=== PATIENT | female | born 1995 | race African-American/Black ===

== ENCOUNTER 2021-02-18 14:38 | Emergency (ER) | payer OTHER ==
[2021-02-18 15:07] VITALS: BMI 32.5
[2021-02-18 18:44] VITALS: BP 128/82; PULSE 70; TEMP 98.3
[2021-02-18 18:50] LABS: BASO % 0.7 % (0-2.0); EOS % 0.3 % (0-4.5); HEMATOCRIT 37.7 % (32.4-45.2); HEMOGLOBIN 12.4 GM/dL (10.7-15.3); LYMPH % 35.4 % (8-40); MCH 29.2 pg (25.7-33.7); MEAN CELL VOLUME 88.5 fl (80-96); MEAN PLT VOLUME 8.2 fl (7.5-11.1); MONO % 8.5 % (3.8-10.2); NEUT % 55.1 % (42.8-82.8); PLATELET COUNT 276 K/MM3 (134-434); RBC 4.26 M/mm3 (3.60-5.2); RDW 14.6 % (11.6-15.6); WHITE BLOOD COUNT 6.2 K/mm3 (4.0-10.0)
[2021-02-18 20:35] LABS: INR 0.95 (0.83-1.09); PROTHROMBIN TIME (PATIENT) 11.7 SEC (9.7-13.0)
[2021-02-18] MEDS ORDERED: LIDOCAINE HCL 1%, 10 MG/ML (50 mL VIAL) SQ ONE (21:39)
[2021-02-18] MEDS ORDERED: LIDOCAINE 1%/EPI 1:100000 (20 ML MULTI DOSE VIAL) ONE (21:40)
[2021-02-18 23:02] LABS: BF GLUCOSE (CSF ONLY) 70 mg/dL (40-70)
[2021-02-18 23:53] LABS: CSF APPEARANCE CLEAR; CSF COLOR COLORLESS
[2021-02-18 23:54] LABS: CSF WBC 3
== END 2021-02-18 23:28 | disposition home or self-care (01) ==
LOC: JER 14:38
PROC: 009U3ZX Drainage of Spinal Canal, Percutaneous Approach, Diagnostic (ICD-10-PCS; principal; 2021-02-18)
DX: R51.9 Headache, unspecified (principal); R83.6 Abnormal cytological findings in cerebrospinal fluid
CPT/HCPCS: 36415; 70450-TC; 82945; 84157; 85025; 85610; 87070; 87205; 99285-25

== ENCOUNTER 2021-03-28 10:38 | Emergency (ER) | payer OTHER ==
[2021-03-28 10:53] VITALS: BP 120/85; PULSE 97; TEMP 97.9; BMI 29.2
[2021-03-28 12:00] LABS: BASO % 0.2 % (0-2.0); EOS % 0.1 % (0-4.5); HEMATOCRIT 40.4 % (32.4-45.2); HEMOGLOBIN 13.5 GM/dL (10.7-15.3); LYMPH % 21.4 % (8-40); MCH 29.6 pg (25.7-33.7); MCHC 33.5 g/dl (32.0-36.0); MEAN CELL VOLUME 88.5 fl (80-96); MEAN PLT VOLUME 8.1 fl (7.5-11.1); MONO % 9.6 % (3.8-10.2); NEUT % 68.7 % (42.8-82.8); PLATELET COUNT 286 K/MM3 (134-434); RBC 4.56 M/mm3 (3.60-5.2); RDW 14.4 % (11.6-15.6); WHITE BLOOD COUNT 5.5 K/mm3 (4.0-10.0)
[2021-03-28 12:14] LABS: PROTHROMBIN TIME (PATIENT) 12.3 SEC (9.7-13.0)
[2021-03-28 12:17] LABS: ACTIVATED PTT 29.8 SECONDS (25.2-36.5)
[2021-03-28 12:25] LABS: CHLORIDE 109 mmol/L (98-107); SODIUM 139 mmol/L (136-145)
[2021-03-28 12:26] LABS: CALCIUM 9.1 mg/dL (8.5-10.1)
[2021-03-28 12:28] LABS: ALBUMIN 4.1 g/dl (3.4-5.0); ANION GAP 9 MMOL/L (8-16); BLOOD UREA NITROGEN 8.4 mg/dL (7-18); CO2 21 mmol/L (21-32); GLUCOSE,RANDOM 87 mg/dL (74-106)
[2021-03-28 12:30] LABS: CREATININE 0.6 mg/dL (0.55-1.3); SGPT/ALT 41 U/L (13-61)
[2021-03-28 12:32] LABS: BILIRUBIN,TOTAL 0.4 mg/dL (0.2-1); TOT PROT 7.6 g/dl (6.4-8.2)
[2021-03-28 12:34] LABS: ALK PHOS 101 U/L (45-117)
[2021-03-28 12:40] LABS: SGOT/AST 25 U/L (15-37)
== END 2021-03-28 13:35 | disposition home or self-care (01) ==
LOC: JER 10:38
DX: F41.9 Anxiety disorder, unspecified (principal); R07.9 Chest pain, unspecified
CPT/HCPCS: 36415; 71046-TC-FY; 80053; 82550; 82553; 84484; 84703; 85025; 85610; 85730; 93005; 93010; 99285-25

== ENCOUNTER 2021-03-31 22:38 | Emergency (ER) | payer OTHER ==
[2021-03-31 22:46] VITALS: TEMP 98.2; BMI 29.2
[2021-03-31] MEDS ORDERED: DEXAMETHASONE SOD PHOSPHATE 10 MG/1 ML VIAL ONE (23:40)
[2021-03-31] MEDS ORDERED: ACETAMINOPHEN INJECTION 100 ML IVPB ONE (23:41)
[2021-03-31] MEDS ORDERED: DEXAMETHASONE SOD PHOSPHATE 10 MG/1 ML VIAL IVPUSH ONE (23:47)
[2021-03-31] MEDS ORDERED: ACETAMINOPHEN 1000 MG/100 ML VIAL (NON FORMULARY) IVPB ONE (23:47)
[2021-03-31] MEDS ORDERED: SODIUM CHLORIDE 1,000 ML IV STA (23:48)
[2021-04-01 00:43] LABS: BASO % 0.3 % (0-2.0); EOS % 0.3 % (0-4.5); HEMATOCRIT 39.8 % (32.4-45.2); HEMOGLOBIN 13.4 GM/dL (10.7-15.3); LYMPH % 27.4 % (8-40); MCH 29.7 pg (25.7-33.7); MCHC 33.7 g/dl (32.0-36.0); MEAN CELL VOLUME 87.9 fl (80-96); MONO % 9.9 % (3.8-10.2); NEUT % 62.1 % (42.8-82.8); PLATELET COUNT 272 K/MM3 (134-434); RBC 4.53 M/mm3 (3.60-5.2); RDW 15.1 % (11.6-15.6); WHITE BLOOD COUNT 7.4 K/mm3 (4.0-10.0)
[2021-04-01 01:11] LABS: ALBUMIN 3.9 g/dl (3.4-5.0); BLOOD UREA NITROGEN 11.3 mg/dL (7-18); CALCIUM 8.8 mg/dL (8.5-10.1); MAGNESIUM 1.9 mg/dL (1.8-2.4)
[2021-04-01 01:15] LABS: CREATININE 0.6 mg/dL (0.55-1.3); PHOSPHOROUS 3.8 mg/dL (2.5-4.9)
[2021-04-01 01:16] LABS: BILIRUBIN,TOTAL 0.2 mg/dL (0.2-1); TOT PROT 7.4 g/dl (6.4-8.2)
[2021-04-01] MEDS ORDERED: POTASSIUM CHLORIDE TABS 10 MEQ TABLET.ER (FP) PO ONE (01:29)
[2021-04-01] MEDS ORDERED: POTASSIUM CHLORIDE TABS 10 MEQ TABLET.ER (FP) ONE (01:41)
[2021-04-01 03:11] VITALS: BP 136/82; PULSE 64
== END 2021-04-01 03:11 | disposition home or self-care (01) ==
LOC: JER 22:38
PROC: 3E0333Z Introduction of Anti-inflammatory into Peripheral Vein, Percutaneous Approach (ICD-10-PCS; principal; 2021-03-31)
PROC: 3E033GC Introduction of Other Therapeutic Substance into Peripheral Vein, Percutaneous Approach (ICD-10-PCS; 2021-03-31)
PROC: 3E0337Z Introduction of Electrolytic and Water Balance Substance into Peripheral Vein, Percutaneous Approach (ICD-10-PCS; 2021-03-31)
DX: R20.0 Anesthesia of skin (principal); J02.9 Acute pharyngitis, unspecified
CPT/HCPCS: 36415; 80053; 83735; 84100; 85025; 87804; 87880; 93005; 93010; 93971-TC; 99285-25; C9803; J0131; J1100; U0003; U0005

== ENCOUNTER 2021-04-06 23:50 | Observation (INO) | payer OTHER ==
[2021-04-07] MEDS ORDERED: ACETAMINOPHEN 1000 MG/100 ML VIAL (NON FORMULARY) IVPB ONE (01:22)
[2021-04-07] MEDS ORDERED: ACETAMINOPHEN INJECTION 100 ML IVPB ONE (01:55)
[2021-04-07 02:20] LABS: BASO % 0.4 % (0-2.0); EOS % 0.4 % (0-4.5); HEMATOCRIT 41.4 % (32.4-45.2); HEMOGLOBIN 13.8 GM/dL (10.7-15.3); MCH 29.2 pg (25.7-33.7); MCHC 33.3 g/dl (32.0-36.0); MEAN CELL VOLUME 87.9 fl (80-96); MEAN PLT VOLUME 7.9 fl (7.5-11.1); MONO % 8.1 % (3.8-10.2); NEUT % 69.1 % (42.8-82.8); PLATELET COUNT 283 10^3/uL (134-434); RBC 4.71 M/mm3 (3.60-5.2); RDW 14.6 % (11.6-15.6); WHITE BLOOD COUNT 7.6 K/mm3 (4.0-10.0)
[2021-04-07 02:22] LABS: PH,URINE 8.5 (5.0-8.0); URINE APPEARANCE TURBID; URINE BILIRUBIN NEGATIVE (NEGATIVE); URINE COLOR YELLOW; URINE GLUCOSE (UA) NEGATIVE (NEGATIVE); URINE KETONE 2+ (NEGATIVE); URINE LEUK ESTERASE NEGATIVE (NEGATIVE); URINE NITRITE NEGATIVE (NEGATIVE); URINE PROTEIN TRACE (NEGATIVE)
[2021-04-07 02:38] LABS: CHLORIDE 107 mmol/L (98-107); SODIUM 141 mmol/L (136-145)
[2021-04-07 02:40] LABS: CALCIUM 9.4 mg/dL (8.5-10.1); GLUCOSE,RANDOM 74 mg/dL (74-106)
[2021-04-07 02:41] LABS: ALBUMIN 4.2 g/dl (3.4-5.0); ANION GAP 9 MMOL/L (8-16); BLOOD UREA NITROGEN 5.4 mg/dL (7-18); CO2 25 mmol/L (21-32)
[2021-04-07 02:44] LABS: CREATININE 0.7 mg/dL (0.55-1.3); SGOT/AST 932 U/L (15-37); SGPT/ALT 409 U/L (13-61)
[2021-04-07 02:45] LABS: BILIRUBIN,TOTAL 1.9 mg/dL (0.2-1); TOT PROT 7.6 g/dl (6.4-8.2)
[2021-04-07] MEDS ORDERED: SODIUM CHLORIDE 0.9% 500 ML INFUS.BAG IV ONE (02:55)
[2021-04-07] MEDS ORDERED: HYDROmorphone HCL CARPU-JECT 2 MG/1 ML DISP.SYRIN IVPB ONE (02:55)
[2021-04-07 03:08] LABS: ALK PHOS 144 U/L (45-117)
[2021-04-07] MEDS ORDERED: HYDROmorphone HCl 2 MG/ML VIAL ONE ×2 (03:35→09:22)
[2021-04-07] MEDS ORDERED: ONDANSETRON 4 MG/2 ML VIAL IVPUSH ONE (03:50)
[2021-04-07] MEDS ORDERED: ONDANSETRON 4 MG/2 ML VIAL ONE (03:51)
[2021-04-07 03:55] LABS: LIPASE 99 U/L (73-393)
[2021-04-07] MEDS ORDERED: PANTOPRAZOLE SODIUM 40 MG VIAL IVPUSH ONE (05:25)
[2021-04-07] MEDS ORDERED: FOLIC ACID INJECTION - 1 MG, THIAMINE HCL 100 MG, MULTIVIT INJECTION ADULT 10 ML in SOD... IVPB ONE (05:25)
[2021-04-07] MEDS ORDERED: SUCRALFATE 1 GM TABLET (FP) ONE (06:13)
[2021-04-07] MEDS ORDERED: SUCRALFATE 1 GM TABLET (FP) PO ONE (06:14)
[2021-04-07] MEDS: SUCRALFATE 1 GM/10 ML UNIT DOSE CUPS PO ONE ×2 (06:17)
[2021-04-07 08:51] LABS: BILIRUBIN,DIRECT 1.5 mg/dL (0.0-0.2)
[2021-04-07] MEDS: HYDROmorphone HCL CARPU-JECT 2 MG/1 ML DISP.SYRIN IVPUSH ONE ×2 (09:30→11:01)
[2021-04-07] MEDS ORDERED: IBUPROFEN 400 MG TABLET (FP) PO PRN ×2 (10:04→16:23)
[2021-04-07] MEDS ORDERED: THIAMINE HCL 200 MG/2 ML VIAL IVPB ONE (10:37)
[2021-04-07] MEDS ORDERED: THIAMINE HCL 200 MG/2 ML VIAL ONE (10:45)
[2021-04-07] MEDS ORDERED: POTASSIUM CHLORIDE TABS 20 MEQ TABLET.ER (FP) PO ONE (11:15)
[2021-04-07] MEDS: SODIUM CHLORIDE 1,000 ML IV SCH (11:31)
[2021-04-07 11:36] LABS: EPI CELLS 21 /uL (0-25.1); HYALINE CASTS 1 /uL (0-3.1); URINE APPEARANCE CLEAR; URINE BACTERIA 209 /uL (0-1359); URINE BILIRUBIN NEGATIVE (NEGATIVE); URINE COLOR YELLOW; URINE GLUCOSE (UA) NEGATIVE (NEGATIVE); URINE KETONE 4+ (NEGATIVE); URINE LEUK ESTERASE NEGATIVE (NEGATIVE); URINE NITRITE NEGATIVE (NEGATIVE); URINE PROTEIN NEGATIVE (NEGATIVE); URINE RBC 3 /uL (0-23.9); URINE WBC 7 /uL (0-25.8)
[2021-04-07 14:07] VITALS: BMI 31.1
[2021-04-07 16:11] LABS: HEMATOCRIT 39.1 % (32.4-45.2); HEMOGLOBIN 12.8 GM/dL (10.7-15.3); MCH 29.1 pg (25.7-33.7); MCHC 32.8 g/dl (32.0-36.0); MEAN CELL VOLUME 88.6 fl (80-96); MEAN PLT VOLUME 8.3 fl (7.5-11.1); PLATELET COUNT 263 10^3/uL (134-434); RBC 4.41 M/mm3 (3.60-5.2); RDW 14.9 % (11.6-15.6); WHITE BLOOD COUNT 5.3 K/mm3 (4.0-10.0)
[2021-04-07 16:24] LABS: INR 0.92 (0.83-1.09); PROTHROMBIN TIME (PATIENT) 11.4 SEC (9.7-13.0)
[2021-04-07 16:26] LABS: ACTIVATED PTT 27.5 SECONDS (25.2-36.5)
[2021-04-07] MEDS: traMADol HCL 50 MG TABLET PO PRN ×2 (16:30→21:57)
[2021-04-07 16:33] LABS: CALCIUM 8.6 mg/dL (8.5-10.1)
[2021-04-07 16:34] LABS: ALBUMIN 3.5 g/dl (3.4-5.0); BLOOD UREA NITROGEN 4.7 mg/dL (7-18)
[2021-04-07 16:37] LABS: CREATININE 0.6 mg/dL (0.55-1.3); PHOSPHOROUS 2.7 mg/dL (2.5-4.9)
[2021-04-07 16:38] LABS: BILIRUBIN,TOTAL 2.5 mg/dL (0.2-1)
[2021-04-07 16:39] LABS: TOT PROT 6.4 g/dl (6.4-8.2)
[2021-04-07 17:14] LABS: URINE BARBITURATES NEGATIVE (NEGATIVE); URINE BENZODIAZEPINES NEGATIVE (NEGATIVE)
[2021-04-07 17:15] LABS: COCAINE, UR NEGATIVE (NEGATIVE); METHADONE, UR NEGATIVE (NEGATIVE); OPIATES, URI NEGATIVE (NEGATIVE); PHENCYCLIDINE,URINE NEGATIVE (NEGATIVE); URINE AMPHETAMINES NEGATIVE (NEGATIVE)
[2021-04-07] MEDS ORDERED: KETOROLAC TROMETHAMINE 30 MG/1 ML VIAL IVPUSH ONE (17:52)
[2021-04-07] MEDS: LIDOCAINE 5% TOPICAL PATCH TP SCH (18:06)
[2021-04-07] MEDS ORDERED: PT OWN MED DRAWER 7, Y5N ONE (21:21)
[2021-04-07] MEDS: LIDOCAINE PATCH REMOVAL MC SCH (21:52)
[2021-04-08] MEDS: SODIUM CHLORIDE 1,000 ML IV SCH ×2 (03:03→17:50)
[2021-04-08] MEDS: traMADol HCL 50 MG TABLET PO PRN (04:27)
[2021-04-08 07:55] LABS: HEMATOCRIT 38.1 % (32.4-45.2); HEMOGLOBIN 12.5 GM/dL (10.7-15.3); MCH 29.1 pg (25.7-33.7); MCHC 32.7 g/dl (32.0-36.0); MEAN CELL VOLUME 88.7 fl (80-96); MEAN PLT VOLUME 8.1 fl (7.5-11.1); PLATELET COUNT 246 10^3/uL (134-434); RDW 14.9 % (11.6-15.6); WHITE BLOOD COUNT 3.7 K/mm3 (4.0-10.0)
[2021-04-08 07:58] LABS: INR 0.92 (0.83-1.09); PROTHROMBIN TIME (PATIENT) 11.4 SEC (9.7-13.0)
[2021-04-08 08:01] LABS: ACTIVATED PTT 28.1 SECONDS (25.2-36.5)
[2021-04-08 08:13] LABS: ALBUMIN 3.5 g/dl (3.4-5.0); BLOOD UREA NITROGEN 3.9 mg/dL (7-18); CALCIUM 8.8 mg/dL (8.5-10.1)
[2021-04-08 08:16] LABS: PHOSPHOROUS 2.6 mg/dL (2.5-4.9)
[2021-04-08 08:17] LABS: CREATININE 0.5 mg/dL (0.55-1.3)
[2021-04-08 08:18] LABS: BILIRUBIN,TOTAL 3.7 mg/dL (0.2-1); TOT PROT 6.4 g/dl (6.4-8.2)
[2021-04-08] MEDS ORDERED: PT OWN MED DRAWER 7, Y5N ONE (09:58)
[2021-04-08] MEDS ORDERED: ENOXAPARIN NA (PORCINE) 40 MG/0.4 ML DISP.SYRIN SQ SCH (10:00)
[2021-04-08] MEDS: THIAMINE HCL 100 MG TABLET (FP) PO SCH (10:05)
[2021-04-08] MEDS: LIDOCAINE 5% TOPICAL PATCH TP SCH (10:05)
[2021-04-08] MEDS: FOLIC ACID 1 MG TABLET (FP) PO SCH (10:05)
[2021-04-08] MEDS: MULTIVITAMINS (DAILY MVI) TABLET (FP) PO SCH (10:05)
[2021-04-08 12:14] LABS: HIV INTERPRETATION NEGATIVE (NEGATIVE)
[2021-04-08] MEDS: AMPICILLIN NA/SULBACTAM NA 1.5 GM in SODIUM CHLORIDE 100 ML IVPB SCH (17:50)
[2021-04-08] MEDS: LORazepam 2 MG/ML SDV VIAL IVPUSH PRN (20:48)
[2021-04-08] MEDS: LIDOCAINE PATCH REMOVAL MC SCH (21:47)
[2021-04-09] MEDS: AMPICILLIN NA/SULBACTAM NA 1.5 GM in SODIUM CHLORIDE 100 ML IVPB SCH ×3 (01:00→18:10)
[2021-04-09] MEDS ORDERED: PT OWN MED DRAWER 7, Y5N ONE (01:00)
[2021-04-09] MEDS: LORazepam 2 MG/ML SDV VIAL IVPUSH PRN ×4 (03:00→19:30)
[2021-04-09 08:10] LABS: BASO % 0.5 % (0-2.0); EOS % 0.6 % (0-4.5); HEMATOCRIT 43.6 % (32.4-45.2); HEMOGLOBIN 14.1 GM/dL (10.7-15.3); LYMPH % 21.3 % (8-40); MCHC 32.2 g/dl (32.0-36.0); MEAN CELL VOLUME 89.9 fl (80-96); MEAN PLT VOLUME 8.5 fl (7.5-11.1); MONO % 10.3 % (3.8-10.2); NEUT % 67.3 % (42.8-82.8); PLATELET COUNT 278 10^3/uL (134-434); RBC 4.85 M/mm3 (3.60-5.2); RDW 15.3 % (11.6-15.6); WHITE BLOOD COUNT 4.4 K/mm3 (4.0-10.0)
[2021-04-09 08:10] LABS: ALPHA-1-ANTITRYPSIN 112 mg/dL (100-188)
[2021-04-09 08:29] LABS: CHLORIDE 110 mmol/L (98-107); SODIUM 140 mmol/L (136-145)
[2021-04-09 08:32] LABS: ALBUMIN 4.1 g/dl (3.4-5.0); ANION GAP 12 MMOL/L (8-16); CALCIUM 9.5 mg/dL (8.5-10.1); CO2 19 mmol/L (21-32); LIPASE 66 U/L (73-393)
[2021-04-09 08:33] LABS: GLUCOSE,RANDOM 86 mg/dL (74-106)
[2021-04-09 08:35] LABS: CREATININE 0.6 mg/dL (0.55-1.3); SGOT/AST 319 U/L (15-37); SGPT/ALT 757 U/L (13-61)
[2021-04-09 08:36] LABS: AMYLASE 30 U/L (25-115)
[2021-04-09 08:37] LABS: ALK PHOS 204 U/L (45-117); BILIRUBIN,TOTAL 1.6 mg/dL (0.2-1); TOT PROT 7.4 g/dl (6.4-8.2)
[2021-04-09] MEDS: SODIUM CHLORIDE 1,000 ML IV SCH ×2 (08:57→12:32)
[2021-04-09] MEDS: THIAMINE HCL 100 MG TABLET (FP) PO SCH (08:59)
[2021-04-09] MEDS: MULTIVITAMINS (DAILY MVI) TABLET (FP) PO SCH (08:59)
[2021-04-09] MEDS: FOLIC ACID 1 MG TABLET (FP) PO SCH (08:59)
[2021-04-09] MEDS: LIDOCAINE 5% TOPICAL PATCH TP SCH (09:00)
[2021-04-09 09:44] LABS: BLOOD UREA NITROGEN 2.7 mg/dL (7-18)
[2021-04-09] MEDS: traMADol HCL 50 MG TABLET PO PRN (10:41)
[2021-04-09] MEDS ORDERED: POTASSIUM CHLORIDE TABS 20 MEQ TABLET.ER (FP) PO ONE (11:47)
[2021-04-09 14:11] LABS: HEP B CORE AB, TOT Negative (Negative)
[2021-04-09] MEDS ORDERED: INSULIN (NOVOLOG) ASPART 100 UNITS/ML 10ML VIAL ONE (18:26)
[2021-04-09] MEDS ORDERED: INSULIN (LEVEMIR) 100 UNITS/ML UNITS SQ ONE (18:26)
[2021-04-09] MEDS: LIDOCAINE PATCH REMOVAL MC SCH (21:01)
[2021-04-10] MEDS: LORazepam 2 MG/ML SDV VIAL IVPUSH PRN ×4 (00:50→21:08)
[2021-04-10] MEDS: AMPICILLIN NA/SULBACTAM NA 1.5 GM in SODIUM CHLORIDE 100 ML IVPB SCH ×3 (00:59→17:22)
[2021-04-10] MEDS ORDERED: MELATONIN 5 MG TABLETS PO ONE ×2 (01:18→21:08)
[2021-04-10] MEDS: traMADol HCL 50 MG TABLET PO PRN (08:31)
[2021-04-10] MEDS: THIAMINE HCL 100 MG TABLET (FP) PO SCH (09:41)
[2021-04-10] MEDS: MULTIVITAMINS (DAILY MVI) TABLET (FP) PO SCH (09:41)
[2021-04-10] MEDS: FOLIC ACID 1 MG TABLET (FP) PO SCH (09:41)
[2021-04-10] MEDS: LIDOCAINE 5% TOPICAL PATCH TP SCH (09:49)
[2021-04-10] MEDS: SODIUM CHLORIDE 1,000 ML IV SCH (11:31)
[2021-04-10 12:19] LABS: BASO % 0.6 % (0-2.0); EOS % 0.7 % (0-4.5); HEMATOCRIT 41.1 % (32.4-45.2); LYMPH % 24.7 % (8-40); MCH 28.4 pg (25.7-33.7); MCHC 31.7 g/dl (32.0-36.0); MEAN CELL VOLUME 89.6 fl (80-96); MEAN PLT VOLUME 8.3 fl (7.5-11.1); MONO % 12.2 % (3.8-10.2); NEUT % 61.8 % (42.8-82.8); PLATELET COUNT 271 10^3/uL (134-434); RBC 4.59 M/mm3 (3.60-5.2); RDW 15.3 % (11.6-15.6); WHITE BLOOD COUNT 4.9 K/mm3 (4.0-10.0)
[2021-04-10 12:39] LABS: ALBUMIN 3.7 g/dl (3.4-5.0); BLOOD UREA NITROGEN 3.8 mg/dL (7-18); CALCIUM 9.6 mg/dL (8.5-10.1)
[2021-04-10 12:43] LABS: CREATININE 0.6 mg/dL (0.55-1.3)
[2021-04-10 12:44] LABS: BILIRUBIN,TOTAL 1.6 mg/dL (0.2-1); TOT PROT 6.9 g/dl (6.4-8.2)
[2021-04-10] MEDS ORDERED: SODIUM CHLORIDE 100 ML IVPB ONE (17:10)
[2021-04-10] MEDS ORDERED: AMPICILLIN NA/SULBACTAM NA 1.5 GM VIAL ONE (17:10)
[2021-04-10] MEDS: LIDOCAINE PATCH REMOVAL MC SCH (22:00)
[2021-04-11] MEDS ORDERED: AMPICILLIN NA/SULBACTAM NA 1.5 GM VIAL ONE ×3 (01:07→17:46)
[2021-04-11] MEDS ORDERED: SODIUM CHLORIDE 100 ML IVPB ONE ×3 (01:07→17:46)
[2021-04-11] MEDS: AMPICILLIN NA/SULBACTAM NA 1.5 GM in SODIUM CHLORIDE 100 ML IVPB SCH ×3 (02:07→18:03)
[2021-04-11] MEDS: LORazepam 2 MG/ML SDV VIAL IVPUSH PRN ×2 (05:24→10:23)
[2021-04-11 07:42] LABS: CALCIUM 9.1 mg/dL (8.5-10.1)
[2021-04-11 07:43] LABS: ALBUMIN 3.6 g/dl (3.4-5.0); BLOOD UREA NITROGEN 4.5 mg/dL (7-18)
[2021-04-11 07:46] LABS: CREATININE 0.6 mg/dL (0.55-1.3)
[2021-04-11 07:47] LABS: BILIRUBIN,TOTAL 1.5 mg/dL (0.2-1); TOT PROT 6.7 g/dl (6.4-8.2)
[2021-04-11] MEDS: THIAMINE HCL 100 MG TABLET (FP) PO SCH (10:06)
[2021-04-11] MEDS: FOLIC ACID 1 MG TABLET (FP) PO SCH (10:06)
[2021-04-11] MEDS: LIDOCAINE 5% TOPICAL PATCH TP SCH (10:06)
[2021-04-11] MEDS: MULTIVITAMINS (DAILY MVI) TABLET (FP) PO SCH (10:06)
[2021-04-11] MEDS: SODIUM CHLORIDE 1,000 ML IV SCH ×2 (10:21→18:03)
[2021-04-11] MEDS: LIDOCAINE PATCH REMOVAL MC SCH (22:24)
[2021-04-12] MEDS ORDERED: AMPICILLIN NA/SULBACTAM NA 1.5 GM VIAL ONE ×2 (01:10→09:09)
[2021-04-12] MEDS ORDERED: SODIUM CHLORIDE 100 ML IVPB ONE ×2 (01:11→09:09)
[2021-04-12] MEDS: AMPICILLIN NA/SULBACTAM NA 1.5 GM in SODIUM CHLORIDE 100 ML IVPB SCH ×2 (01:12→09:15)
[2021-04-12] MEDS: SODIUM CHLORIDE 1,000 ML IV SCH (07:34)
[2021-04-12 08:10] LABS: BLOOD UREA NITROGEN 6.8 mg/dL (7-18)
[2021-04-12 08:12] LABS: BILIRUBIN,TOTAL 1.2 mg/dL (0.2-1); CALCIUM 8.8 mg/dL (8.5-10.1)
[2021-04-12 08:13] LABS: ALBUMIN 3.6 g/dl (3.4-5.0); CREATININE 0.6 mg/dL (0.55-1.3)
[2021-04-12 08:14] LABS: TOT PROT 6.7 g/dl (6.4-8.2)
[2021-04-12] MEDS ORDERED: PT OWN MED DRAWER 7, Y5N ONE ×2 (09:08→13:00)
[2021-04-12] MEDS: FOLIC ACID 1 MG TABLET (FP) PO SCH ×2 (09:14→12:45)
[2021-04-12] MEDS: MULTIVITAMINS (DAILY MVI) TABLET (FP) PO SCH ×2 (09:23→12:45)
[2021-04-12] MEDS: THIAMINE HCL 100 MG TABLET (FP) PO SCH ×2 (09:23→12:45)
[2021-04-12] MEDS: LIDOCAINE 5% TOPICAL PATCH TP SCH (09:26)
[2021-04-12 16:02] LABS: VENOUS BASE EXCESS -7.3 mmol/L (-2-2); VENOUS PCO2 37.6 mmHg (38-52); VENOUS PH 7.306 (7.310-7.410)
[2021-04-12 16:52] LABS: PH,URINE 8.5 (5.0-8.0); URINE APPEARANCE CLEAR; URINE BILIRUBIN NEGATIVE (NEGATIVE); URINE COLOR YELLOW; URINE GLUCOSE (UA) NEGATIVE (NEGATIVE); URINE KETONE TRACE (NEGATIVE); URINE LEUK ESTERASE NEGATIVE (NEGATIVE); URINE NITRITE NEGATIVE (NEGATIVE); URINE PROTEIN NEGATIVE (NEGATIVE); URINE UROBILINOGEN 0.2 mg/dL (0.2-1.0)
[2021-04-12] MEDS: LIDOCAINE PATCH REMOVAL MC SCH (21:12)
[2021-04-12] MEDS ORDERED: SODIUM BICARBONATE 650 MG TABLET PO ONE (21:51)
[2021-04-12] MEDS ORDERED: MELATONIN 5 MG TABLETS PO ONE (22:45)
[2021-04-13 08:14] LABS: ALBUMIN 3.8 g/dl (3.4-5.0); BLOOD UREA NITROGEN 6.2 mg/dL (7-18)
[2021-04-13 08:18] LABS: CREATININE 0.6 mg/dL (0.55-1.3)
[2021-04-13 08:19] LABS: BILIRUBIN,TOTAL 0.8 mg/dL (0.2-1)
[2021-04-13] MEDS: MULTIVITAMINS (DAILY MVI) TABLET (FP) PO SCH (09:32)
[2021-04-13] MEDS: THIAMINE HCL 100 MG TABLET (FP) PO SCH (09:32)
[2021-04-13] MEDS: FOLIC ACID 1 MG TABLET (FP) PO SCH (09:32)
[2021-04-13] MEDS: LIDOCAINE 5% TOPICAL PATCH TP SCH (09:33)
[2021-04-13 10:41] VITALS: BP 146/74; PULSE 68; TEMP 97.5
== END 2021-04-13 11:32 | disposition home or self-care (01) ==
LOC: JER 23:50 → INTOOBSV 04-07 04:52 → UNDOADMOB 04-07 04:52 → JERBED 04-07 04:52 → J7W 04-07 12:17 → JERBED 04-07 12:17 → J7W 04-07 16:16
PROVIDERS: ATTEND Internal Medicine
PROC: 3E033GC Introduction of Other Therapeutic Substance into Peripheral Vein, Percutaneous Approach (ICD-10-PCS; principal; 2021-04-07)
PROC: 3E03329 Introduction of Other Anti-infective into Peripheral Vein, Percutaneous Approach (ICD-10-PCS; 2021-04-07)
PROC: 3E03329 Introduction of Other Anti-infective into Peripheral Vein, Percutaneous Approach (ICD-10-PCS; 2021-04-07)
DX: R74.01 Elevation of levels of liver transaminase levels (principal); F10.29 Alcohol dependence with unspecified alcohol-induced disorder; K70.10 Alcoholic hepatitis without ascites; K80.42 Calculus of bile duct with acute cholecystitis without obstruction; F39 Unspecified mood [affective] disorder; M54.89 Other dorsalgia; H40.9 Unspecified glaucoma; G93.2 Benign intracranial hypertension; R94.5 Abnormal results of liver function studies; E87.2 Acidosis
CPT/HCPCS: 36415; 70450-TC; 71260-TC; 72100-TC-FY; 73090-TC-RT-FY; 74177-TC; 74181-TC; 76705-TC; 80053; 80074; 80307; 81003; 82103; 82150; 82248; 82436; 82550; 82553; 82728; 82803; 82977; 83516; 83540; 83550; 83690; 83735; 84100; 84133; 84300; 84443; 84466; 84484; 84703; 85025; 85027; 85610; 85730; 86038; 86140; 86704; 86705; 86706; 86707; 86708; 86709; 87040; 87086; 87340; 87389; 93005; 93010; 96365; 96366; 96375; 96376; 97116-GP; 97161-GP; 99291; C9803; G0378; J0131; U0003; U0005

== ENCOUNTER 2021-04-19 17:51 | Emergency (ER) | payer OTHER ==
[2021-04-19 18:00] VITALS: BP 129/80; PULSE 73; TEMP 98.8; BMI 29.2
[2021-04-19 18:56] LABS: BASO % 0.3 % (0-2.0); EOS % 0.7 % (0-4.5); HEMOGLOBIN 12.4 GM/dL (10.7-15.3); LYMPH % 30.4 % (8-40); MCH 28.7 pg (25.7-33.7); MCHC 32.7 g/dl (32.0-36.0); MEAN CELL VOLUME 87.9 fl (80-96); MEAN PLT VOLUME 8.2 fl (7.5-11.1); MONO % 15.2 % (3.8-10.2); NEUT % 53.4 % (42.8-82.8); PLATELET COUNT 297 10^3/uL (134-434); RBC 4.32 M/mm3 (3.60-5.2); RDW 14.9 % (11.6-15.6); WHITE BLOOD COUNT 5.3 K/mm3 (4.0-10.0)
[2021-04-19 19:03] LABS: INR 1.08 (0.83-1.09); PROTHROMBIN TIME (PATIENT) 13.3 SEC (9.7-13.0)
[2021-04-19 19:06] LABS: ACTIVATED PTT 30.2 SECONDS (25.2-36.5)
[2021-04-19 19:13] LABS: CHLORIDE 105 mmol/L (98-107); SODIUM 141 mmol/L (136-145)
[2021-04-19 19:17] LABS: ALBUMIN 3.8 g/dl (3.4-5.0); ANION GAP 8 MMOL/L (8-16); CO2 28 mmol/L (21-32); GLUCOSE,RANDOM 90 mg/dL (74-106)
[2021-04-19 19:20] LABS: SGPT/ALT 119 U/L (13-61)
[2021-04-19 19:21] LABS: BILIRUBIN,TOTAL 0.8 mg/dL (0.2-1); TOT PROT 6.8 g/dl (6.4-8.2)
[2021-04-19 19:32] LABS: SGOT/AST 44 U/L (15-37)
[2021-04-19] MEDS ORDERED: POTASSIUM CHLORIDE TABS 20 MEQ TABLET.ER (FP) PO ONE (19:42)
[2021-04-19 19:55] LABS: ALK PHOS 128 U/L (45-117); BLOOD UREA NITROGEN 2.8 mg/dL (7-18); CREATININE 0.5 mg/dL (0.55-1.3)
== END 2021-04-19 20:05 | disposition home or self-care (01) ==
LOC: JERFT 17:51
DX: M71.22 Synovial cyst of popliteal space [Baker], left knee (principal)
CPT/HCPCS: 36415; 80053; 85025; 85610; 85730; 99284-25

== ENCOUNTER 2021-04-20 23:00 | Emergency (ER) | payer OTHER ==
[2021-04-20 23:20] VITALS: BP 123/73; PULSE 70; TEMP 98; BMI 29.2
== END 2021-04-21 02:41 | disposition home or self-care (01) ==
LOC: JER 23:00
DX: R04.0 Epistaxis (principal); J40 Bronchitis, not specified as acute or chronic
CPT/HCPCS: 71046-TC-FY; 87804; 99284-25; C9803; U0003; U0005

== ENCOUNTER 2021-04-23 13:19 | Emergency (ER) | payer OTHER ==
[2021-04-23 13:27] VITALS: BP 135/74; PULSE 68; TEMP 98.6; BMI 29.2
== END 2021-04-23 14:33 | disposition home or self-care (01) ==
LOC: JERFT 13:19
DX: R05 Cough (principal); R51.9 Headache, unspecified
CPT/HCPCS: 99281-25

== ENCOUNTER 2021-04-25 19:00 | Emergency (ER) | payer OTHER ==
[2021-04-25 19:36] VITALS: TEMP 97.7; BMI 23.5
[2021-04-25] MEDS ORDERED: ACETAMINOPHEN 325 MG TABLET (FP) PO ONE (20:12)
[2021-04-25] MEDS ORDERED: SODIUM CHLORIDE 0.9% 500 ML INFUS.BAG IV ONE (20:13)
[2021-04-25] MEDS ORDERED: ACETAMINOPHEN 325 MG TABLET (FP) ONE (20:38)
[2021-04-25 20:45] LABS: HEMATOCRIT 37.5 % (32.4-45.2); HEMOGLOBIN 12.3 GM/dL (10.7-15.3); MCH 28.6 pg (25.7-33.7); MCHC 32.7 g/dl (32.0-36.0); MEAN CELL VOLUME 87.5 fl (80-96); MEAN PLT VOLUME 7.9 fl (7.5-11.1); PLATELET COUNT 333 10^3/uL (134-434); RBC 4.28 M/mm3 (3.60-5.2); RDW 14.4 % (11.6-15.6); WHITE BLOOD COUNT 6.9 K/mm3 (4.0-10.0)
[2021-04-25 21:00] LABS: CHLORIDE 108 mmol/L (98-107); SODIUM 140 mmol/L (136-145)
[2021-04-25 21:02] LABS: ALBUMIN 3.4 g/dl (3.4-5.0); ANION GAP 9 MMOL/L (8-16); BLOOD UREA NITROGEN 5.3 mg/dL (7-18); CO2 24 mmol/L (21-32); LIPASE 57 U/L (73-393); MAGNESIUM 1.9 mg/dL (1.8-2.4)
[2021-04-25 21:03] LABS: GLUCOSE,RANDOM 69 mg/dL (74-106)
[2021-04-25 21:05] LABS: CREATININE 0.4 mg/dL (0.55-1.3); SGOT/AST 25 U/L (15-37); SGPT/ALT 57 U/L (13-61)
[2021-04-25 21:07] LABS: BILIRUBIN,TOTAL 0.5 mg/dL (0.2-1); TOT PROT 6.6 g/dl (6.4-8.2)
[2021-04-25 21:08] LABS: ALK PHOS 106 U/L (45-117)
[2021-04-25] MEDS ORDERED: POTASSIUM CHLORIDE ORAL LIQUID 20 MEQ/15 ML PO ONE (22:00)
[2021-04-25] MEDS ORDERED: POTASSIUM CHLORIDE ORAL LIQUID 20 MEQ/15 ML ONE (22:28)
[2021-04-25 23:19] VITALS: BP 128/82; PULSE 56
== END 2021-04-26 00:47 | disposition home or self-care (01) ==
LOC: JER 19:00
DX: K80.50 Calculus of bile duct without cholangitis or cholecystitis without obstruction (principal); R94.31 Abnormal electrocardiogram [ECG] [EKG]
CPT/HCPCS: 36415; 76705-TC; 80053; 83605; 83690; 83735; 84484; 84703; 85027; 93005; 93010; 99285-25

== ENCOUNTER 2021-11-10 12:16 | Emergency (ER) | payer OTHER ==
[2021-11-10 12:48] VITALS: BP 134/87; PULSE 91; TEMP 98.7; BMI 29.2
[2021-11-10] MEDS ORDERED: FAMOTIDINE 20 MG/50 ML IVPB 20 MG/50 ML MG IVPB ONE ×2 (13:25→13:44)
[2021-11-10] MEDS ORDERED: MAG HYDROX/AL HYDROX/SIMETH 30 ML UNIT-DOSE CUP PO ONE (13:25)
[2021-11-10] MEDS ORDERED: MAG HYDROX/AL HYDROX/SIMETH 30 ML UNIT-DOSE CUP ONE (13:44)
[2021-11-10 13:57] LABS: URINE APPEARANCE CLOUDY; URINE BILIRUBIN NEGATIVE (NEGATIVE); URINE COLOR YELLOW; URINE GLUCOSE (UA) NEGATIVE (NEGATIVE); URINE KETONE NEGATIVE (NEGATIVE); URINE LEUK ESTERASE NEGATIVE (NEGATIVE); URINE NITRITE NEGATIVE (NEGATIVE); URINE PROTEIN TRACE (NEGATIVE); URINE UROBILINOGEN 0.2 mg/dL (0.2-1.0)
[2021-11-10 13:59] LABS: BASO % 0.5 % (0-2.0); EOS % 0.6 % (0-4.5); HCG,QUALITATIVE URINE Negative; HEMATOCRIT 40.2 % (32.4-45.2); HEMOGLOBIN 12.8 GM/dL (10.7-15.3); LYMPH % 34.5 % (8-40); MCH 28.3 pg (25.7-33.7); MCHC 31.8 g/dl (32.0-36.0); MEAN PLT VOLUME 7.9 fl (7.5-11.1); MONO % 11.1 % (3.8-10.2); NEUT % 53.3 % (42.8-82.8); PLATELET COUNT 279 10^3/uL (134-434); RBC 4.51 M/mm3 (3.60-5.2); RDW 14.6 % (11.6-15.6); WHITE BLOOD COUNT 5.3 K/mm3 (4.0-10.0)
[2021-11-10 14:45] LABS: CALCIUM 9.7 mg/dL (8.5-10.1)
[2021-11-10] MEDS ORDERED: ACETAMINOPHEN 1000 MG/100 ML BAG IVPB ONE (14:47)
[2021-11-10 14:50] LABS: BILIRUBIN,TOTAL 0.3 mg/dL (0.2-1); CREATININE 0.6 mg/dL (0.55-1.3); TOT PROT 7.4 g/dl (6.4-8.2)
[2021-11-10] MEDS ORDERED: ACETAMINOPHEN INJECTION 100 ML IVPB ONE (14:54)
[2021-11-10] MEDS ORDERED: morphine CARPU-JECT 2 MG/1 ML DISP.SYRIN IVPUSH ONE (16:09)
[2021-11-10] MEDS ORDERED: ONDANSETRON 4 MG/2 ML VIAL IVPUSH ONE (16:10)
[2021-11-10] MEDS ORDERED: ONDANSETRON 4 MG/2 ML VIAL ONE (16:13)
== END 2021-11-10 17:30 ==
LOC: JER 12:16
PROC: 3E0333Z Introduction of Anti-inflammatory into Peripheral Vein, Percutaneous Approach (ICD-10-PCS; principal; 2021-11-10)
PROC: 3E033GC Introduction of Other Therapeutic Substance into Peripheral Vein, Percutaneous Approach (ICD-10-PCS; 2021-11-10)
PROC: 3E033NZ Introduction of Analgesics, Hypnotics, Sedatives into Peripheral Vein, Percutaneous Approach (ICD-10-PCS; 2021-11-10)
PROC: 3E033GC Introduction of Other Therapeutic Substance into Peripheral Vein, Percutaneous Approach (ICD-10-PCS; 2021-11-10)
DX: N83.292 Other ovarian cyst, left side (principal)
CPT/HCPCS: 36415; 74177-TC; 80053; 81003; 83690; 84703; 85025; 85379; 99285-25; J0131; Q9967

== ENCOUNTER 2022-01-02 11:19 | Emergency (ER) | payer OTHER ==
[2022-01-02 11:48] VITALS: BP 135/86; PULSE 91; TEMP 98.2; BMI 29.2
[2022-01-02] MEDS ORDERED: KETOROLAC TROMETHAMINE 30 MG/1 ML VIAL IM ONE (12:38)
[2022-01-02] MEDS ORDERED: KETOROLAC TROMETHAMINE 30 MG/1 ML VIAL ONE (12:40)
== END 2022-01-02 13:41 | disposition home or self-care (01) ==
LOC: JER 11:19
PROC: 3E023GC Introduction of Other Therapeutic Substance into Muscle, Percutaneous Approach (ICD-10-PCS; principal; 2022-01-02)
DX: M94.0 Chondrocostal junction syndrome [Tietze] (principal)
CPT/HCPCS: 71046-TC-FY; 93005; 93010; 99284-25

== ENCOUNTER 2022-09-27 11:35 | Emergency (ER) | payer SELFPAY ==
[2022-09-27 11:45] VITALS: BP 118/75; PULSE 120; RESP 19; TEMP 98.9; BMI 30.9
[2022-09-27] MEDS ORDERED: KETOROLAC TROMETHAMINE 30 MG/1 ML VIAL IVPUSH ONE (13:22)
[2022-09-27] MEDS ORDERED: KETOROLAC TROMETHAMINE 30 MG/1 ML VIAL ONE (13:24)
[2022-09-27 14:26] LABS: BASO % 0.2 % (0-2.0); EOS % 0.2 % (0-4.5); HEMATOCRIT 38.2 % (32.4-45.2); HEMOGLOBIN 12.4 GM/dL (10.7-15.3); LYMPH % 9.9 % (8-40); MCH 28.4 pg (25.7-33.7); MCHC 32.5 g/dl (32.0-36.0); MEAN CELL VOLUME 87.4 fl (80-96); MEAN PLT VOLUME 8.1 fl (7.5-11.1); MONO % 7.7 % (3.8-10.2); PLATELET COUNT 285 10^3/uL (134-434); RBC 4.37 M/mm3 (3.60-5.2); RDW 14.7 % (11.6-15.6); WHITE BLOOD COUNT 18.2 K/mm3 (4.0-10.0)
[2022-09-27 14:53] LABS: CALCIUM 9.5 mg/dL (8.5-10.1)
[2022-09-27 14:54] LABS: ALBUMIN 3.8 g/dl (3.4-5.0); BLOOD UREA NITROGEN 6.9 mg/dL (7-18)
[2022-09-27 14:57] LABS: CREATININE 0.7 mg/dL (0.55-1.3)
[2022-09-27 14:59] LABS: BILIRUBIN,TOTAL 0.3 mg/dL (0.2-1); TOT PROT 7.4 g/dl (6.4-8.2)
[2022-09-27] MEDS ORDERED: GABAPENTIN 100 MG CAPSULE PO ONE (16:02)
[2022-09-27] MEDS ORDERED: SODIUM CHLORIDE 0.9% 500 ML INFUS.BAG IV ONE (16:05)
[2022-09-27] MEDS ORDERED: GABAPENTIN 100 MG CAPSULE ONE (16:14)
[2022-09-27 17:50] LABS: EPI CELLS >36 /uL (0-25.1); HYALINE CASTS 7 /uL (0-3.1); PH,URINE 5.5 (5.0-8.0); URINE APPEARANCE CLOUDY; URINE BACTERIA >9,000 /uL (0-1359); URINE BILIRUBIN NEGATIVE (NEGATIVE); URINE COLOR YELLOW; URINE GLUCOSE (UA) NEGATIVE (NEGATIVE); URINE KETONE 1+ (NEGATIVE); URINE LEUK ESTERASE NEGATIVE (NEGATIVE); URINE NITRITE POSITIVE (NEGATIVE); URINE PROTEIN 2+ (NEGATIVE); URINE RBC 13 /uL (0-23.9); URINE UROBILINOGEN 0.2 mg/dL (0.2-1.0)
[2022-09-27] MEDS ORDERED: morphine CARPU-JECT 2 MG/1 ML DISP.SYRIN IVPUSH ONE (18:35)
== END 2022-09-27 20:41 | disposition home or self-care (01) ==
LOC: JERFT 11:35
PROC: 3E033GC Introduction of Other Therapeutic Substance into Peripheral Vein, Percutaneous Approach (ICD-10-PCS; principal; 2022-09-27)
DX: N39.0 Urinary tract infection, site not specified (principal); M54.31 Sciatica, right side
CPT/HCPCS: 0241U-QW; 36415; 71046-TC-FY; 80053; 81003; 84703; 85025; 85379; 87086; 87186; 93005; 93010; 93971-TC; 99285-25

== ENCOUNTER 2022-12-01 19:13 | Emergency (ER) | payer OTHER ==
[2022-12-01 19:31] VITALS: BMI 31.2
[2022-12-01] MEDS ORDERED: SODIUM CHLORIDE 0.9% 500 ML INFUS.BAG IV ONE (20:18)
[2022-12-01] MEDS ORDERED: diphenhydrAMINE HCL 25 MG CAPSULE (FP) PO ONE (20:18)
[2022-12-01] MEDS ORDERED: METOCLOPRAMIDE HCL INJECTION 10 MG/2 ML VIAL IVPUSH ONE (20:19)
[2022-12-01] MEDS ORDERED: METOCLOPRAMIDE HCL INJECTION 10 MG/2 ML VIAL ONE (20:23)
[2022-12-01 21:31] LABS: BASO % 0.2 % (0-2.0); HEMATOCRIT 35.9 % (32.4-45.2); HEMOGLOBIN 11.9 GM/dL (10.7-15.3); LYMPH % 31.2 % (8-40); MCH 28.8 pg (25.7-33.7); MCHC 33.3 g/dl (32.0-36.0); MEAN CELL VOLUME 86.6 fl (80-96); MEAN PLT VOLUME 7.8 fl (7.5-11.1); MONO % 7.8 % (3.8-10.2); NEUT % 59.8 % (42.8-82.8); PLATELET COUNT 309 10^3/uL (134-434); RBC 4.15 M/mm3 (3.60-5.2); RDW 14.7 % (11.6-15.6); WHITE BLOOD COUNT 10.6 K/mm3 (4.0-10.0)
[2022-12-01 21:44] LABS: CALCIUM 8.9 mg/dL (8.5-10.1)
[2022-12-01 21:45] LABS: ALBUMIN 3.5 g/dl (3.4-5.0); BLOOD UREA NITROGEN 10.8 mg/dL (7-18)
[2022-12-01 21:48] LABS: CREATININE 0.7 mg/dL (0.55-1.3)
[2022-12-01 21:49] LABS: BILIRUBIN,TOTAL 0.2 mg/dL (0.2-1)
[2022-12-01 21:50] LABS: TOT PROT 6.6 g/dl (6.4-8.2)
[2022-12-01] MEDS ORDERED: MAGNESIUM SULF 50% (8.12 MEQ/2 ML-1 GM VIAL) IVPB ONE (23:36)
[2022-12-01] MEDS ORDERED: morphine CARPU-JECT 2 MG/1 ML DISP.SYRIN IVPUSH ONE (23:37)
[2022-12-01] MEDS ORDERED: MAGNESIUM SULFATE IN WATER 2 GM/50 ML IVPB IVPB ONE (23:39)
[2022-12-02] MEDS ORDERED: morphine CARPU-JECT 4 MG/1 ML DISP.SYRIN IVPUSH ONE ×2 (01:06→01:40)
[2022-12-02] MEDS ORDERED: ACETAMINOPHEN 1000 MG/100 ML BAG IVPB ONE (01:07)
[2022-12-02 01:31] VITALS: BP 131/81; PULSE 77; RESP 19; TEMP 97.7
== END 2022-12-02 03:15 | disposition home or self-care (01) ==
LOC: JER 19:13
PROC: 009U3ZX Drainage of Spinal Canal, Percutaneous Approach, Diagnostic (ICD-10-PCS; principal; 2022-12-01)
PROC: 3E033GC Introduction of Other Therapeutic Substance into Peripheral Vein, Percutaneous Approach (ICD-10-PCS; 2022-12-01)
DX: G93.2 Benign intracranial hypertension (principal)
CPT/HCPCS: 36415; 70450-TC; 80053; 84702; 84703; 85025; 86850; 86900; 86901; 99285-25

== ENCOUNTER 2023-03-28 10:29 | Emergency (ER) | payer OTHER ==
[2023-03-28 10:34] VITALS: BP 127/84; PULSE 77; RESP 18; TEMP 98.2; BMI 30.2
[2023-03-28] MEDS ORDERED: KETOROLAC TROMETHAMINE 30 MG/1 ML VIAL IM ONE (12:42)
[2023-03-28] MEDS ORDERED: KETOROLAC TROMETHAMINE 30 MG/1 ML VIAL ONE (12:46)
== END 2023-03-28 13:26 | disposition home or self-care (01) ==
LOC: JERFT 10:29
PROC: 3E0233Z Introduction of Anti-inflammatory into Muscle, Percutaneous Approach (ICD-10-PCS; principal; 2023-03-28)
DX: R07.89 Other chest pain (principal); R05.9 Cough, unspecified
CPT/HCPCS: 71046-TC-FY; 84703; 93005; 93010; 99284-25

== ENCOUNTER 2023-09-18 10:14 | Emergency (ER) | payer OTHER ==
[2023-09-18 11:20] VITALS: BP 115/75; PULSE 72; RESP 20; TEMP 97.9; BMI 29.2
[2023-09-18] MEDS ORDERED: SODIUM CHLORIDE 0.9% 500 ML INFUS.BAG IV ONE (12:20)
[2023-09-18] MEDS ORDERED: METOCLOPRAMIDE HCL INJECTION 10 MG/2 ML VIAL IVPUSH ONE (12:21)
[2023-09-18] MEDS ORDERED: ACETAMINOPHEN 500 MG TABLET (FP) PO ONE (12:21)
[2023-09-18] MEDS ORDERED: METOCLOPRAMIDE HCL INJECTION 10 MG/2 ML VIAL ONE (12:24)
[2023-09-18] MEDS ORDERED: ACETAMINOPHEN 500 MG TABLET (FP) ONE (12:27)
[2023-09-18 12:58] LABS: BASO % 0.3 % (0-2.0); EOS % 1.2 % (0-4.5); HEMOGLOBIN 13.5 GM/dL (10.7-15.3); LYMPH % 31.8 % (8-40); MCH 28.5 pg (25.7-33.7); MCHC 32.8 g/dl (32.0-36.0); MEAN PLT VOLUME 7.4 fl (7.5-11.1); MONO % 7.8 % (3.8-10.2); NEUT % 58.9 % (42.8-82.8); PLATELET COUNT 303 10^3/uL (134-434); RBC 4.72 M/mm3 (3.60-5.2); RDW 15.3 % (11.6-15.6); WHITE BLOOD COUNT 5.6 K/mm3 (4.0-10.0)
[2023-09-18 13:13] LABS: POTASSIUM 4.1 mmol/L (3.5-5.1)
[2023-09-18 13:17] LABS: CALCIUM 9.3 mg/dL (8.5-10.1)
[2023-09-18 13:21] LABS: CREATININE 0.8 mg/dL (0.55-1.3)
[2023-09-18 13:23] LABS: BILIRUBIN,TOTAL 0.3 mg/dL (0.2-1); TOT PROT 7.4 g/dl (6.4-8.2)
== END 2023-09-18 14:09 | disposition home or self-care (01) ==
LOC: JER 10:14
PROC: 3E033NZ Introduction of Analgesics, Hypnotics, Sedatives into Peripheral Vein, Percutaneous Approach (ICD-10-PCS; principal; 2023-09-18)
DX: R51.9 Headache, unspecified (principal)
CPT/HCPCS: 36415; 80053; 84703; 85025; 96374; 99284-25

== ENCOUNTER 2023-09-21 15:07 | Emergency (ER) | payer OTHER ==
[2023-09-21 15:27] VITALS: BP 145/100; PULSE 66; RESP 16; TEMP 98.4; BMI 29.2
[2023-09-21] MEDS ORDERED: KETOROLAC TROMETHAMINE 30 MG/1 ML VIAL IVPUSH ONE (16:21)
[2023-09-21] MEDS ORDERED: SODIUM CHLORIDE 1,000 ML IV STA (16:22)
[2023-09-21] MEDS ORDERED: ONDANSETRON 4 MG/2 ML VIAL IVPUSH ONE (16:22)
[2023-09-21] MEDS ORDERED: ACETAMINOPHEN 1000 MG/100 ML BAG IVPB ONE (16:23)
[2023-09-21] MEDS ORDERED: ONDANSETRON 4 MG/2 ML VIAL ONE (16:32)
[2023-09-21] MEDS ORDERED: ACETAMINOPHEN INJECTION 100 ML IVPB ONE (16:32)
[2023-09-21] MEDS ORDERED: KETOROLAC TROMETHAMINE 30 MG/1 ML VIAL ONE (16:33)
[2023-09-21] MEDS ORDERED: DEXAMETHASONE SOD PHOSPHATE 10 MG/1 ML VIAL IVPUSH ONE (17:47)
[2023-09-21 18:08] LABS: BASO % 0.2 % (0-2.0); HEMOGLOBIN 12.5 GM/dL (10.7-15.3); LYMPH % 13.8 % (8-40); MCH 28.1 pg (25.7-33.7); MEAN CELL VOLUME 87.9 fl (80-96); MEAN PLT VOLUME 7.4 fl (7.5-11.1); MONO % 3.8 % (3.8-10.2); NEUT % 82.2 % (42.8-82.8); PLATELET COUNT 325 10^3/uL (134-434); RBC 4.43 M/mm3 (3.60-5.2); RDW 14.9 % (11.6-15.6); WHITE BLOOD COUNT 6.4 K/mm3 (4.0-10.0)
[2023-09-21 18:28] LABS: POTASSIUM 3.9 mmol/L (3.5-5.1)
[2023-09-21] MEDS ORDERED: DEXAMETHASONE SOD PHOSPHATE 10 MG/1 ML VIAL ONE (18:28)
[2023-09-21 18:30] LABS: CALCIUM 8.5 mg/dL (8.5-10.1)
[2023-09-21 18:31] LABS: BLOOD UREA NITROGEN 9.7 mg/dL (7-18)
[2023-09-21 18:34] LABS: CREATININE 0.7 mg/dL (0.55-1.3)
[2023-09-21 18:35] LABS: BILIRUBIN,TOTAL 0.3 mg/dL (0.2-1); TOT PROT 7.1 g/dl (6.4-8.2)
== END 2023-09-21 20:20 | disposition home or self-care (01) ==
LOC: JER 15:07
PROC: 3E033NZ Introduction of Analgesics, Hypnotics, Sedatives into Peripheral Vein, Percutaneous Approach (ICD-10-PCS; principal; 2023-09-21)
PROC: 3E033GC Introduction of Other Therapeutic Substance into Peripheral Vein, Percutaneous Approach (ICD-10-PCS; 2023-09-21)
PROC: 3E033GC Introduction of Other Therapeutic Substance into Peripheral Vein, Percutaneous Approach (ICD-10-PCS; 2023-09-21)
PROC: 3E033GC Introduction of Other Therapeutic Substance into Peripheral Vein, Percutaneous Approach (ICD-10-PCS; 2023-09-21)
PROC: 3E0337Z Introduction of Electrolytic and Water Balance Substance into Peripheral Vein, Percutaneous Approach (ICD-10-PCS; 2023-09-21)
DX: R51.9 Headache, unspecified (principal); H53.71 Glare sensitivity; R11.0 Nausea; M79.10 Myalgia, unspecified site; Z20.822 Contact with and (suspected) exposure to COVID-19
CPT/HCPCS: 0241U-QW; 36415; 70470-TC; 80053; 84703; 85025; 99284-25; J1100; Q9967

== ENCOUNTER 2025-03-09 09:36 | Inpatient (IN) | payer OTHER ==
[2025-03-09] MEDS ORDERED: FAMOTIDINE 20 MG/50 ML IVPB 20 MG/50 ML MG IVPB ONE (10:50)
[2025-03-09] MEDS ORDERED: KETOROLAC TROMETHAMINE 15 MG/ML VIAL ONE ×2 (10:50→16:59)
[2025-03-09] MEDS: KETOROLAC TROMETHAMINE 15 MG/ML VIAL IVPUSH ONE (10:59)
[2025-03-09] MEDS: LACTATED RINGERS SOLUTION 1000 ML INFUS.BAG IV ONE (10:59)
[2025-03-09] MEDS: FAMOTIDINE 20 MG/50 ML IVPB 20 MG/50 ML MG IVPB ONE (11:00)
[2025-03-09 11:02] LABS: ABSOLUTE IMMATURE GRANULOCYTES 0.03 x10^3/uL (0.0-0.031); BASOPHILS # 0.02 x10^3/uL (0.01-0.08); HEMATOCRIT 40.2 % (34.1-44.9); HEMOGLOBIN 12.6 g/dL (11.2-15.7); MCHC 31.3 g/dl (32.2-35.5); MEAN CELL VOLUME 93.1 fl (79.4-94.8); MEAN PLT VOLUME 9.2 fl (9.4-12.3); MONOCYTE # 0.67 x10^3/uL (0.24-0.86); MONOCYTE % 5.7 % (4.7-12.5); PLATELET COUNT 278 x10^3/uL (182-369); RDW 14.5 % (12.1-16.8)
[2025-03-09 11:15] LABS: EPI CELLS 16 /uL (0-25.1); HYALINE CASTS 1 /uL (0-3.1); URINE APPEARANCE CLEAR; URINE BACTERIA 80 /uL (0-1359); URINE BILIRUBIN NEGATIVE (NEGATIVE); URINE COLOR YELLOW; URINE GLUCOSE (UA) NEGATIVE (NEGATIVE); URINE KETONE NEGATIVE (NEGATIVE); URINE LEUK ESTERASE NEGATIVE (NEGATIVE); URINE NITRITE NEGATIVE (NEGATIVE); URINE PROTEIN 1+ (NEGATIVE); URINE RBC 12 /uL (0-23.9); URINE UROBILINOGEN 0.2 mg/dL (0.2-1.0); URINE WBC 20 /uL (0-25.8)
[2025-03-09 11:18] LABS: HCG,QUALITATIVE URINE Negative
[2025-03-09 11:21] LABS: CHLORIDE 104 mmol/L (98-107); SODIUM 135 mmol/L (136-145)
[2025-03-09 11:23] LABS: ANION GAP 6 mmol/L (4-13); BLOOD UREA NITROGEN 9.9 mg/dL (7-18); CALCIUM 9.3 mg/dL (8.5-10.1); CO2 25 mmol/L (21-32)
[2025-03-09 11:24] LABS: GLUCOSE,RANDOM 107 mg/dL (74-106)
[2025-03-09 11:26] LABS: SGPT/ALT 26 U/L (13-61)
[2025-03-09 11:27] LABS: CREATININE 0.6 mg/dL (0.55-1.3); SGOT/AST 18 U/L (15-37)
[2025-03-09 11:28] LABS: ALK PHOS 70 U/L (45-117); BILIRUBIN,TOTAL 0.5 mg/dL (0.2-1); TOT PROT 7.4 g/dl (6.4-8.2)
[2025-03-09] MEDS ORDERED: MORPHINE SULFATE 2 MG/ML SYRINGE ONE ×2 (11:40→14:04)
[2025-03-09] MEDS: morphine CARPU-JECT 2 MG/1 ML DISP.SYRIN IVPUSH ONE ×2 (11:41→14:16)
[2025-03-09] MEDS: ACETAMINOPHEN 1000 MG/100 ML BAG IVPB ONE (12:49)
[2025-03-09 12:53] LABS: HIV INTERPRETATION NEGATIVE (NEGATIVE)
[2025-03-09 12:54] LABS: HCV DIAGNOSTIC IN-HOUSE W/RFLX NON-REACTIVE (NONREACTIVE)
[2025-03-09] MEDS ORDERED: MAG HYDROX/AL HYDROX/SIMETH 30 ML UNIT-DOSE CUP ONE (14:04)
[2025-03-09] MEDS: MAG HYDROX/AL HYDROX/SIMETH 30 ML UNIT-DOSE CUP PO ONE (14:17)
[2025-03-09] MEDS ORDERED: morphine CARPU-JECT 2 MG/1 ML DISP.SYRIN IVPUSH PRN (15:04)
[2025-03-09] MEDS ORDERED: oxyCODONE HCL 5 MG TABLET PO PRN (15:11)
[2025-03-09] MEDS ORDERED: ACETAMINOPHEN 325 MG TABLET (FP) PO PRN (15:11)
[2025-03-09] MEDS ORDERED: ONDANSETRON 4 MG/2 ML VIAL IVPUSH PRN (15:11)
[2025-03-09] MEDS ORDERED: LIDOCAINE 4% PATCH TP ONE (15:58)
[2025-03-09] MEDS: LIDOCAINE 5% TOPICAL PATCH TP SCH (16:01)
[2025-03-09] MEDS ORDERED: ALBUTEROL SO4 HFA INHALER IH PRN (16:04)
[2025-03-09] MEDS: KETOROLAC TROMETHAMINE 15 MG/ML VIAL IM PRN (17:11)
[2025-03-09 18:04] VITALS: BMI 27.5
[2025-03-09] MEDS: ACETAMINOPHEN 1000 MG/100 ML BAG IVPB PRN (19:36)
[2025-03-09] MEDS: LIDOCAINE PATCH REMOVAL MC SCH (21:44)
[2025-03-09] MEDS: KETOROLAC TROMETHAMINE 15 MG/ML VIAL IVPUSH PRN (23:16)
[2025-03-10 08:52] LABS: ABSOLUTE IMMATURE GRANULOCYTES 0.09 x10^3/uL (0.0-0.031); BASOPHILS # 0.03 x10^3/uL (0.01-0.08); EOSINOPHIL % 0.2 % (0.7-5.8); EOSINOPHILS # 0.03 x10^3/uL (0.04-0.36); HEMATOCRIT 34.6 % (34.1-44.9); HEMOGLOBIN 11.1 g/dL (11.2-15.7); MCHC 32.1 g/dl (32.2-35.5); MEAN CELL VOLUME 91.5 fl (79.4-94.8); MEAN PLT VOLUME 9.6 fl (9.4-12.3); MONOCYTE # 0.77 x10^3/uL (0.24-0.86); PLATELET COUNT 240 x10^3/uL (182-369); RDW 14.3 % (12.1-16.8)
[2025-03-10 09:24] LABS: POTASSIUM 3.1 mmol/L (3.5-5.1)
[2025-03-10] MEDS ORDERED: POTASSIUM CHLORIDE TABS 20 MEQ TABLET.ER (FP) PO ONE (09:30)
[2025-03-10 09:31] LABS: CALCIUM 8.8 mg/dL (8.5-10.1)
[2025-03-10 09:33] LABS: MAGNESIUM 1.9 mg/dL (1.8-2.4)
[2025-03-10 09:36] LABS: BILIRUBIN,TOTAL 0.6 mg/dL (0.2-1); CREATININE 0.6 mg/dL (0.55-1.3); PHOSPHOROUS 2.9 mg/dL (2.5-4.9)
[2025-03-10 09:38] LABS: TOT PROT 6.2 g/dl (6.4-8.2)
[2025-03-10 09:43] LABS: ALBUMIN 3.1 g/dl (3.4-5.0)
[2025-03-10] MEDS: CEFTRIAXONE 1 G/50 ML PREMIX 50 ML IVPB SCH (12:36)
[2025-03-10] MEDS: POTASSIUM CHLORIDE TABS 20 MEQ TABLET.ER (FP) PO ONE (12:48)
[2025-03-10] MEDS: ENOXAPARIN NA (PORCINE) 40 MG/0.4 ML DISP.SYRIN SQ SCH (12:50)
[2025-03-10] MEDS: SUCRALFATE 1 GM TABLET (FP) PO SCH (21:42)
[2025-03-10] MEDS: PANTOPRAZOLE 40 MG TABLET PO SCH (21:42)
[2025-03-11] MEDS: FAMOTIDINE 20 MG/50 ML IVPB 20 MG/50 ML MG IVPB ONE (00:59)
[2025-03-11 08:32] LABS: ABSOLUTE IMMATURE GRANULOCYTES 0.03 x10^3/uL (0.0-0.031); BASOPHILS # 0.02 x10^3/uL (0.01-0.08); EOSINOPHIL % 0.4 % (0.7-5.8); EOSINOPHILS # 0.04 x10^3/uL (0.04-0.36); HEMATOCRIT 34.5 % (34.1-44.9); HEMOGLOBIN 10.9 g/dL (11.2-15.7); MCHC 31.6 g/dl (32.2-35.5); MEAN CELL VOLUME 91.3 fl (79.4-94.8); MEAN PLT VOLUME 9.8 fl (9.4-12.3); MONOCYTE # 0.73 x10^3/uL (0.24-0.86); MONOCYTE % 7.5 % (4.7-12.5); PLATELET COUNT 244 x10^3/uL (182-369)
[2025-03-11 09:01] LABS: POTASSIUM 3.4 mmol/L (3.5-5.1)
[2025-03-11 09:05] LABS: CALCIUM 9.4 mg/dL (8.5-10.1)
[2025-03-11 09:06] LABS: ALBUMIN 2.9 g/dl (3.4-5.0); BLOOD UREA NITROGEN 8.9 mg/dL (7-18); MAGNESIUM 2.2 mg/dL (1.8-2.4)
[2025-03-11 09:10] LABS: CREATININE 0.6 mg/dL (0.55-1.3); PHOSPHOROUS 3.1 mg/dL (2.5-4.9)
[2025-03-11 09:11] LABS: BILIRUBIN,TOTAL 0.4 mg/dL (0.2-1); TOT PROT 6.1 g/dl (6.4-8.2)
[2025-03-11] MEDS: LORazepam 2 MG/ML SDV VIAL IVPUSH ONE (09:51)
[2025-03-11] MEDS: BISACODYL 10 MG SUPP.RECT PR ONE (09:52)
[2025-03-11] MEDS: oxyCODONE HCL 5 MG TABLET PO PRN ×2 (11:29→21:29)
[2025-03-11] MEDS: POTASSIUM CHLORIDE TABS 20 MEQ TABLET.ER (FP) PO ONE (18:47)
[2025-03-12 10:50] LABS: HEMATOCRIT 33.3 % (34.1-44.9); HEMOGLOBIN 10.6 g/dL (11.2-15.7); MCHC 31.8 g/dl (32.2-35.5); MEAN CELL VOLUME 91.5 fl (79.4-94.8); MEAN PLT VOLUME 9.9 fl (9.4-12.3); PLATELET COUNT 235 x10^3/uL (182-369); RDW 13.6 % (12.1-16.8)
[2025-03-12 11:17] LABS: POTASSIUM 3.5 mmol/L (3.5-5.1)
[2025-03-12 11:21] LABS: CALCIUM 9.2 mg/dL (8.5-10.1)
[2025-03-12 11:22] LABS: BLOOD UREA NITROGEN 5.6 mg/dL (7-18)
[2025-03-12 11:25] LABS: CREATININE 0.5 mg/dL (0.55-1.3)
[2025-03-12 11:26] LABS: BILIRUBIN,TOTAL 0.4 mg/dL (0.2-1)
[2025-03-12 12:47] VITALS: RESP 15
[2025-03-12 13:16] LABS: HIV INTERPRETATION NEGATIVE (NEGATIVE)
[2025-03-12 14:31] VITALS: BP 158/89; PULSE 72; TEMP 97.9
[2025-03-12] MEDS ORDERED: METOCLOPRAMIDE HCL 10 MG TABLET (FP) PO SCH (16:30)
== END 2025-03-12 16:00 | disposition home or self-care (01) | DRG 241 ==
LOC: JER 09:36 → JERBED 14:09 → J6S 17:24 → OBSVTOIN 03-11 09:53
PROVIDERS: ADMIT Internal Medicine; ATTEND Internal Medicine
PROC: 0DB68ZX Excision of Stomach, Via Natural or Artificial Opening Endoscopic, Diagnostic (ICD-10-PCS; 2025-03-12)
PROC: 0DB98ZX Excision of Duodenum, Via Natural or Artificial Opening Endoscopic, Diagnostic (ICD-10-PCS; principal; 2025-03-12 12:00)
DX: K29.60 Other gastritis without bleeding (principal); F17.200 Nicotine dependence, unspecified, uncomplicated; D72.829 Elevated white blood cell count, unspecified; K29.80 Duodenitis without bleeding; K29.00 Acute gastritis without bleeding; R10.11 Right upper quadrant pain
CPT/HCPCS: 36415; 74177-TC; 74182-TC; 76705-TC; 76830-TC; 80053; 81003; 83690; 83735; 84100; 84702; 84703; 85025; 85027; 86803; 87086; 87389; 88305-TC; 88342-TC; 99285-25; G0378; J0131